=== PATIENT | female | born 1990 | race Caucasian/White ===

== ENCOUNTER 2024-06-07 12:41 | Emergency (ER) | payer OTHER, SELFPAY ==
[2024-06-07 12:44] VITALS: BP 122/82
[2024-06-07 13:15] VITALS: BMI 30.9
[2024-06-07 13:31] LABS: % Basophils 0.4 % (0-2); % Eosinophils 3.3 % (0-6); % Immature Granulocytes 0.4 % (0-0.5); % Lymphocytes 32.1 % (20.5-51.1); % Monocytes 7.5 % (1.7-9.3); % Neutrophils 56.3 % (42.2-75.2); Absolute Eosinophils 0.3 10^3/uL (0-0.7); Absolute Lymphocytes 3.2 10^3/uL (1.2-3.4); Absolute Monocytes 0.8 10^3/uL (0.1-0.6); Absolute Neutrophils 5.6 10^3/uL (1.4-6.5); Hematocrit 41.5 % (37.0-47.0); Hemoglobin 13.9 g/dL (12.0-16.0); Mean Corp Hgb Conc. 33.5 g/dL (33.0-37.0); Mean Corpuscular Hgb 29.1 pg (27.0-31.0); Mean Platelet Volume 9.2 fL (7.4-10.4); Nucleated Red Blood Cells % 0 %; Platelet Count 262 10^3/uL (130-400); Red Blood Cell Count 4.77 10^6/uL (4.20-5.40); Red Cell Dist. Width 12.2 % (11.5-14.5)
--- NOTE | 2024-06-07 13:38 | ED.GENMED ---
History of Present Illness
General
Chief Complaint: Breathing Problem
Source: patient
Exam Limitations: none
Time Seen by Provider: 06/07/24 13:16
Nursing documentation reviewed up to this point in time: agreed with
History of Present Illness
History of Present Illness:
33-year-old female presenting to the emergency department today with concerns of ongoing cough over the past month or so. Has been on 2 antibiotics and has been on steroids previously. Has been in urgent care multiple times. Has had ongoing
issues. Denies any chest pain fevers.
Review of Systems
Review of Systems
Allergies reviewed?: Yes
All Other Systems: ROS reviewed and negative except as documented in HPI and ROS
Phy Exam
Physical Exam
Physical Exam:
GENERAL: Alert , in no apparent distress
EYE: pupils equal and reactive
NECK: Supple, no significant adenopathy.
ENT: o/p clr, mmm.
CARDIAC: Regular rate and rhythm .
LUNGS: End expiratory wheezing diffusely
ABDOMEN: Soft, without focal tenderness, no r/g, no cvat
NEUROLOGICAL: Alert and oriented, no focal neuro deficits
SKIN: Warm and dry, skin intact.
MUSCULOSKELETAL: No edema, well perfused.
PSYCH: Normal and appropriate interaction.
Course
Orders/Labs/Results
Orders:
Orders
06/07/24 12:46
CR Chest - 2 Views Urgent
Comment:
Reason For Exam: cough
06/07/24 13:24
COVID-19 Antigen Urgent
Source: Nasal Swab
Complete Blood Count/With Diff Urgent
Comprehensive Metabolic Panel Urgent
Influenza A+B Rapid Molecular Urgent
TONE Source: Nasal Swab
Specimen Description:
06/07/24 13:33
Dexamethasone [Decadron] 10 mg PO NOW STA
Ipratropium/Albuterol Sulfate [Duoneb] 3 ml INH R NOW ONE
Abnormal Lab Results
06/07/24
13:24
Absolute Monos (auto) 0.8 H 10^3/uL
(0.1-0.6)
Total Protein 6.1 L g/dl
(6.3-8.2)
06/07/24 13:24
06/07/24 13:24
Vital Signs
Initial and Last Documented VS:
Initial Vital Signs
Temp Pulse Resp BP Pulse Ox
98.0 F 72 17 122/82 96
06/07/24 12:44 06/07/24 12:44 06/07/24 12:44 06/07/24 12:44 06/07/24 12:44
Last Documented Vital Signs
Temp Pulse Resp BP Pulse Ox
98.0 F 72 17 122/82 96
06/07/24 12:44 06/07/24 12:44 06/07/24 12:44 06/07/24 12:44 06/07/24 12:44
MDM/Problems Addressed
MDM/Problems Addressed:
33-year-old female presenting to the emergency department today with concerns of ongoing cough breath over the past month or so. Has been on multiple antibiotics and courses of steroids without full relief. Here patient's vital signs are normal
patient no distress but does have an expiratory wheezing with forced exhalation. Plan started on steroid taper. Otherwise stable for outpatient management return precautions given.
*Critical Care Note
Total Time (30-74mins, 75-104mins- exclusive of procedures): Not Applicable
ED Attending Note
-
Portions of this chart may have been created with voice recognition software.� Occasional wrong word or��sound alike� substitutions may have occurred due to the inherent limitations of voice recognition software.
Discharge Plan
Departure
Patient Disposition: Home (Routine Discharge)
Date of Disposition: 06/07/24
Time of Disposition: 15:38
Patient with high blood pressure during this ER visit?: No
Condition: Good
Covid-19: Not Applicable
Discharge Problem:
Asthma exacerbation
Instructions: Asthma, Adult (DC)
Prescriptions:
New
prednisone 10 mg Tablet
See Rx Instructions .ROUTE .COMPLEX Qty: 45 0RF
Rx Instructions:
Take By Mouth:
50 mg daily x3 days, 40 mg daily x3 days,
30 mg daily x3 days, 20 mg daily x3 days,
10 mg daily x3 days
Referrals:
Sunny Hurley MD [Active] - Follow up in 5-7 days
Onofre Tee MD [Family Provider] -
Activity Restrictions/Additional Instructions:
You came to the emergency department today with concerns of ongoing respiratory symptoms. You are found to have significant wheezing consistent with ongoing asthma reaction. Please follow closely as an outpatient. Return for any worsening, new or
concerning symptoms.
Interventions
Interventions:
*Risk Screen - Suicide Last Done: 06/07/24 12:45
*General Assessment Last Done: 06/07/24 12:45
*Neglect/Abuse Screening Last Done: 06/07/24 12:45
*ED- Fall Risk Assessment Last Done: 06/07/24 14:00
*ED COVID-19 Vaccine History Last Done: 06/07/24 12:45
ED- Cardiac Assessment Last Done: 06/07/24 15:30
ED- Pulmonary Assessment Last Done: 06/07/24 15:30
Discharge Date and Time
Print Language: BULGARIAN
[2024-06-07 13:46] LABS: ALT (SGPT) 18 U/L (0-35); AST (SGOT) 15 U/L (14-36); Albumin 3.6 g/dl (3.5-5.0); Alkaline Phosphatase 80 U/L (38-126); Blood Urea Nitrogen 11 mg/dl (7-17); Calcium 9.2 mg/dl (8.4-10.2); Carbon Dioxide 26 mmol/L (22-30); Chloride 104 mmol/L (98-107); Estimated Creatinine Clearance 98 ml/min; Glucose 96 mg/dl (70-99); Potassium 3.9 mmol/L (3.5-5.1); Sodium 137 mmol/L (135-145); Total Bilirubin 0.5 mg/dl (0.2-1.3); Total Protein 6.1 g/dl (6.3-8.2); eGFR > 60.00
[2024-06-07 13:55] LABS: COVID-19 Antigen Negative (Negative)
[2024-06-07] MEDS: DECADRON 10 MG PO (13:56)
[2024-06-07] MEDS: DUONEB 3 ML INH (13:56)
== END 2024-06-07 16:09 | disposition home or self-care (01) ==
LOC: EMR 12:41
PROVIDERS: EMERGENCY PHYSICIAN Emergency Medicine; FAMILY PHYSICIAN Internal Medicine
DX: J45.901 Unspecified asthma with (acute) exacerbation (principal); Z11.52 Encounter for screening for COVID-19
CPT/HCPCS: 99284; 94640; 71046; 80053; 85025; 87502; 87811